=== PATIENT | female | born 2005 | race Caucasian/White ===

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

== ENCOUNTER 2024-02-13 10:12 | Emergency (ER) | payer OTHER ==
[2024-02-13] MEDS: Diphtheria,Pertussis(Acell),Tetanus Vaccine 0.5 ML Syringe IM ONE (10:33)
== END 2024-02-13 10:42 | disposition home or self-care (01) ==
LOC: MW.ED 10:12
DX: S61.303A Unspecified open wound of left middle finger with damage to nail, initial encounter (principal); Z23 Encounter for immunization; F17.210 Nicotine dependence, cigarettes, uncomplicated; Z88.2 Allergy status to sulfonamides; W26.8XXA Contact with other sharp object(s), not elsewhere classified, initial encounter
CPT/HCPCS: 90471; 90715; 99282-25